=== PATIENT | male | born 1975 | race Caucasian/White ===

== ENCOUNTER 2020-07-16 15:10 | Emergency (ER) | payer SELFPAY ==
[~2020-07-16] VITALS: Ht 180.3 cm; Wt 86.4 kg
[2020-07-16 15:30] VITALS: BP 142/92; TEMP 97.9
[2020-07-16] MEDS ORDERED: BACTRIM DS 8001 TAB PO (16:26)
[2020-07-16 16:35] VITALS: PULSE 82
== END 2020-07-16 16:35 | disposition home or self-care (01) ==
LOC: COL.ER 15:10
DX: S61.213A Laceration without foreign body of left middle finger without damage to nail, initial encounter (principal); F17.200 Nicotine dependence, unspecified, uncomplicated; W26.8XXA Contact with other sharp object(s), not elsewhere classified, initial encounter; Y92.59 Other trade areas as the place of occurrence of the external cause; Y99.0 Civilian activity done for income or pay